=== PATIENT | female | born 1970 | race African-American/Black ===

== ENCOUNTER 2019-07-16 16:26 | Emergency (ER) | payer SELFPAY ==
[~2019-07-16] VITALS: Ht 167.6 cm; Wt 75.0 kg
[2019-07-16 16:44] VITALS: Ht 167.6 cm; Wt 75.0 kg
[2019-07-16 17:15] LABS: BASOPHILS 0.3 % (0-2); EOSINOPHILS 2.4 % (0-7); HEMATOCRIT 34.8 % (36.0-48.0); HEMOGLOBIN 11.8 g/dL (12-16); IMMATURE GRANULOCYTES 0.1 % (0-5); LYMPHOCYTES 31.3 % (15-50); MCH 32.6 pg (26.0-34.0); MCHC 33.9 g/dL (31.0-37.0); MCV 96.1 fL (80.0-100.0); MEAN PLATELET VOLUME 9.2 fL (7.4-10.4); MONOCYTES 5.4 % (2-11); NEUTROPHILS 60.5 % (40-80); PLATELET COUNT 289 10x3/uL (130-400); RBC 3.62 10x6/uL (4.00-5.40); RDW 12.9 % (11.5-14.5); WBC 7.2 10x3/uL (4.8-10.8)
--- NOTE | 2019-07-16 17:16 | NUR ---
PT IS A HIGH RISK PER ASSESSMENT. SITTER AT BEDSIDE. PT HAS A HX OF SCHIZOPHRENIA, DEPRESSION, AND ANXIETY DISORDER. PT HAS SOME SI WITH VARIOUS PLANS. SAFETY PLAN INITIATED.
[2019-07-16 17:26] LABS: ANION GAP 11.2 mmol/L (8-16); CALCIUM 8.8 mg/dL (8.5-10.1); CARBON DIOXIDE 26.9 mmol/L (21.0-32.0); CREATININE - SERUM 0.9 mg/dL (0.6-1.3); POTASSIUM - SERUM 4.1 mmol/L (3.5-5.1)
[2019-07-16 17:31] LABS: UDS - AMPHET NEGATIVE QUAL (NEGATIVE); UDS - BARB NEGATIVE QUAL (NEGATIVE); UDS - BENZO NEGATIVE QUAL (NEGATIVE); UDS - COCAINE NEGATIVE QUAL (NEGATIVE); UDS - OPIATE NEGATIVE QUAL (NEGATIVE); UDS - PCP NEGATIVE QUAL (NEGATIVE); UDS - THC NEGATIVE QUAL (NEGATIVE)
[2019-07-16 17:32] LABS: ALBUMIN 3.5 g/dL (3.4-5.0); BILIRUBIN - TOTAL 0.34 mg/dL (0.2-1.3); MAGNESIUM - SERUM 1.6 mg/dL (1.8-2.4)
[2019-07-16 20:31] LABS: BILIRUBIN NEGATIVE (NEGATIVE); GLUCOSE NEGATIVE (NEGATIVE); KETONE NEGATIVE (NEGATIVE); NITRITE NEGATIVE (NEGATIVE); SPECIFIC GRAVITY 1.015 (1.005-1.020); UROBILINOGEN NORMAL (NORMAL)
[2019-07-16 21:19] LABS: HCG URINE NEGATIVE (NEGATIVE)
[2019-07-16 22:31] VITALS: BP 91/59
[2019-07-16] MEDS ORDERED: LISINOPRIL5 MG PO (23:23)
[2019-07-16] MEDS ORDERED: BAYER CHEWABLE81 MG PO (23:23)
== END 2019-07-17 00:47 ==
LOC: D.ER 16:26
PROVIDERS: Emergency Medicine
DX: R45.851 Suicidal ideations (principal); D64.9 Anemia, unspecified; R44.0 Auditory hallucinations; R44.1 Visual hallucinations; I10 Essential (primary) hypertension; I09.9 Rheumatic heart disease, unspecified